=== PATIENT | male | born 1980 | race Caucasian/White ===

== ENCOUNTER 2017-07-22 10:56 | Emergency (ER) | payer MEDICARE, OTHER, MEDICAID ==
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
--- NOTE | 2017-07-22 12:03 | XRAY Preliminary Report ---
Exam: XR WRIST 3 VIEW RT IMPRESSION: Minimally displaced oblique fracture of the distal right ulnar metaphysis. [facility] SITE ID: [id number]
--- NOTE | 2017-07-22 12:04 | XRAY Report ---
EXAM: RIGHT WRIST RADIOGRAPHY EXAM DATE: 07/22/2017 11:38 AM. CLINICAL HISTORY: Wrist pain, heard pop. COMPARISON: None. TECHNIQUE: 3 views. FINDINGS: Bones: Minimally displaced oblique fracture of the right distal ulnar metaphysis. No extension of the fracture planes into the joint space. Joints: Normal. No subluxations. Soft Tissues: Normal. No soft tissue swelling. IMPRESSION: Minimally displaced oblique fracture of the distal right ulnar metaphysis. [facility] Referring Provider Line: [phone] SITE ID: [id number]
[2017-07-22 12:37] VITALS: BP 136/72
== END 2017-07-22 12:37 | disposition home or self-care (01) ==
LOC: ED 10:56
DX: S52.231A Displaced oblique fracture of shaft of right ulna, initial encounter for closed fracture (principal); X50.1XXA Overexertion from prolonged static or awkward postures, initial encounter; Y92.009 Unspecified place in unspecified non-institutional (private) residence as the place of occurrence of the external cause; E11.9 Type 2 diabetes mellitus without complications; Z79.84 Long term (current) use of oral hypoglycemic drugs
CPT/HCPCS: 29105; 99283

== ENCOUNTER 2017-07-25 08:00 | Outpatient (CLI) | payer MEDICARE, MEDICAID ==
[2017-07-25 19:27] LABS: VALPROIC ACID (DEPAKOTE) 85.5 ug/mL
== END 2017-07-25 08:01 | disposition home or self-care (01) ==
LOC: LAB.WCP 08:00
PROVIDERS: ATTEND Family Medicine
DX: R56.9 Unspecified convulsions (principal)
CPT/HCPCS: 36415; 80164; 80185

== ENCOUNTER 2017-09-01 13:52 | Outpatient (CLI) | payer MEDICARE, MEDICAID | END 2017-09-01 13:53 | disposition home or self-care (01) | LOC: LAB.WCP 13:52 | PROVIDERS: ATTEND Family Medicine | DX: R56.9 Unspecified convulsions (principal) | CPT/HCPCS: 36415; 80185 ==

== ENCOUNTER 2017-12-28 14:16 | Outpatient (CLI) | payer MEDICARE, MEDICAID | END 2017-12-28 14:17 | LOC: LAB.WCP 14:16 | PROVIDERS: ATTEND Family Medicine | DX: R56.9 Unspecified convulsions (principal) | CPT/HCPCS: 36415; 80185 ==